=== PATIENT | male | born 1990 | race Caucasian/White ===

== ENCOUNTER 2018-04-12 07:30 | Inpatient (IN) | payer OTHER ==
[~2018-04-12] VITALS: Ht 175.3 cm; Wt 63.0 kg
[2018-04-18] MEDS ORDERED: BENADRYL25 M3 PO (13:17)
[2018-04-18] MEDS ORDERED: TYLENOL EXTRA500 MG ORAL (13:17)
[2018-04-19] VITALS (13 sets, daily range): BP systolic 115–131; BP diastolic 51–87
[2018-04-19] MEDS ORDERED: Vancomycin 1gm/D5W 275ml IVPB ONE ×2 (06:00)
[2018-04-19] MEDS ORDERED: Pantoprazole Inj IVP SCH (06:00)
[2018-04-19] MEDS ORDERED: Sterile Water Irrig 1000ml IRRIG ONE (07:00)
[2018-04-19] MEDS ORDERED: NS Irrig 1000ml ONE (07:00)
[2018-04-19] MEDS ORDERED: LR 1000ml ONE (07:00)
[2018-04-19] MEDS ORDERED: Neostigmine 1mg/ml 10ml Inj ONE (07:00)
[2018-04-19] MEDS ORDERED: Propofol 1,000mg/ 100ml btl IV ONE (07:00)
[2018-04-19] MEDS ORDERED: Bacitracin Oint 15gm Tube TOPIC ONE (07:07)
[2018-04-19] MEDS ORDERED: EPINEPHrine 1mg/1ml Amp ONE (07:07)
[2018-04-19] MEDS ORDERED: Thrombin 5000 units spray kit TOPIC ONE ×2 (07:08→14:41)
[2018-04-19] MEDS ORDERED: Heparin 1000 units/ml 1ml Vial ONE (07:08)
[2018-04-19] MEDS ORDERED: Gelfoam Size TOPIC ONE ×2 (07:09→14:42)
[2018-04-19] MEDS ORDERED: Gelfoam Absorbable 1gm powder pkt TOPIC ONE ×2 (07:09→14:42)
[2018-04-19] MEDS ORDERED: fentaNYL 100 mcg/2 mL IV ONE ×2 (07:09→08:21)
[2018-04-19] MEDS ORDERED: Midazolam 2mg/2ml Inj ONE ×2 (07:09→11:32)
[2018-04-19] MEDS ORDERED: Thrombin 5000 units TOPIC ONE ×2 (07:09→14:42)
[2018-04-19] MEDS ORDERED: Bupivacaine 0.5% Inj 30 ml vial INJ ONE (07:09)
[2018-04-19] MEDS ORDERED: Bacitracin 50000 Units Vial ONE (07:10)
[2018-04-19] MEDS ORDERED: Zemuron 50mg/5ml Inj IV ONE ×2 (07:16→11:06)
[2018-04-19] MEDS ORDERED: Succinylcholine 20mg/ml 10ml vial ONE (07:16)
[2018-04-19] MEDS ORDERED: Vancomycin 1gm inj IVPB ONE (07:34)
[2018-04-19] MEDS ORDERED: Pantoprazole Inj ONE (07:34)
--- NOTE | 2018-04-19 07:52 | Pre-Procedure Note/Attestation ---
Pre-Procedure Note/Attestation Complete Prior to Procedure Planned Procedure: bilateral Procedure Narrative: Multi-stage cervical decompressiona nd fusion 1. Posterior cervical fecetectomies C4-5 lateral mass screws C3 to C5 2.Anterior cervical fusion and fixation at C4-5 with plate arthrodesis 3. Posterior C3 to C5 posterolateral arthrodesis and fixation C3 to C5 Attestation I attest that I discussed the nature of the procedure; its benefits; risks and complications; and alternatives (and the risks and benefits of such alternatives ), prior to the procedure, with the patient (or the patient's legal employer relations representative). I attest that, if there was a reasonable possibility of needing a blood transfusion, the patient (or the patient's legal employer relations representative) was given the [place] [employer] standardized written summary, pursuant to the [place] Blood Safety Act ([place] Health and Safety Code # 1645, as amended). I attest that I re-evaluated the patient just prior to the surgery and that there has been no change in the patient's H&P, except as documented below: Chikis Potter MD Apr 19, 2018 07:52
[2018-04-19] MEDS ORDERED: Dexamethasone 4mg/ml vial ONE (08:44)
[2018-04-19] MEDS ORDERED: Morphine Sulfate 10mg/ml Inj ONE (09:20)
--- NOTE | 2018-04-19 09:34 | Anethesia Preoperative Eval ---
Anesthesia Pre-op PMH/ROS General Date of Evaluation: Apr 19, 2018 Time of Evaluation: 07:16 Anesthesiologist: Elsa ASA Score: ASA 2 Mallampati Score Class I : Soft palate, uvula, fauces, pillars visible Class II: Soft palate, uvula, fauces visible Class III: Soft palate, base of uvula visible Class IV: Only hard plate visible Mallampati Classification: Class II Surgeon: Abbey Diagnosis: Cervical myelopathy Surgical Procedure: C3-C5 posterior decompression, anterior discectomy fusion Anesthesia History: none Social History: current smoker, alcohol use - social Family History: no anesthesia problems Allergies: Coded Allergies: No Known Allergies (Unverified , 04/15/18) Medications: see eMAR Past Medical History Cardiovascular: Denies: HTN, CAD, GA, valve dz, arrhythmia, other Pulmonary: Denies: asthma, COPD, CHIDI, other Gastrointestinal/Genitourinary: Reports: GERD - mild; Denies: CRI, ESRD, other Neurologic/Psychiatric: Reports: other - chronic pain; Denies: dementia, CVA, depression/anxiety, TIA Endocrine: Denies: DM, hypothyroidism, steroids, other HEENT: Denies: cataract (L), cataract (R), glaucoma, [place] (L), [place] (R), other Hematology/Immune: Denies: anemia, DVT, bleeding disorder, other Musculoskeletal/Integumentary: Denies: OA, RA, DJD, DDD, edema, other PMH Narrative: as above PSxH Narrative: none Anesthesia Pre-op Phys. Exam Physician Exam Last Vital Signs Date Time Temp Pulse Resp B/P (MAP) Pulse Ox O2 Delivery O2 Flow Rate FiO2 04/19/18 06:41 Room Air 04/19/18 06:30 97.8 74 18 122/87 (99) 100 97.8 Constitutional: NAD Neurologic: CN 2-12 intact Cardiovascular: RRR, no M/R/G Respiratory: CTA Gastrointestinal: S/NT/ND Airway Exam Mallampati Score: Class II MO: full Neck: stiff ROM: limited Teeth: intact Dentures: no upper, no lower Anesthesia Pre-op A/P Labs see chart Studies Pre-op Studies: EKG - NSR, CXR - WNL Risk Assessment & Plan Assessment: ASA 2 Plan: GA with ETT prone and supine position neuromonitoring Status Change Before Surgery: No Pre-Antibiotics Drug: Vancomycin 1gr. Gentamicyn 80 mg. Given Within 1 Hr of Incision: Yes Time Given: 09:15 Isaias Hunter MD Apr 19, 2018 09:34
[2018-04-19] MEDS ORDERED: Sodium Chloride 10ml vial INJ ONE (09:35)
[2018-04-19] MEDS ORDERED: Glycopyrrolate 0.2mg/ml 1ml Vial ONE (09:35)
[2018-04-19] MEDS ORDERED: Propofol 200mg/20ml IV ONE ×5 (10:53→14:42)
[2018-04-19] MEDS ORDERED: LR 1000ml 1,000 ML IVLG SCH (15:01)
[2018-04-19] MEDS ORDERED: Ketorolac 30mg Inj ONE (15:04)
[2018-04-19] MEDS ORDERED: Metoclopramide 10mg/2ml Inj IVP PRN (15:15)
[2018-04-19] MEDS ORDERED: fentaNYL 100 mcg/2 mL IV PRN (15:15)
[2018-04-19] MEDS ORDERED: Ketorolac 30mg Inj IV PRN (15:15)
[2018-04-19] MEDS ORDERED: DiphenhydrAMINE 50mg/ml Inj IVP PRN (15:15)
[2018-04-19] MEDS ORDERED: Acetaminophen (Non formulary) 100 ML IV ONE ×2 (15:15→16:30)
[2018-04-19] MEDS ORDERED: Meperidine 50mg/ml Inj(FOR RIGORS ONLY) IV PRN (15:15)
--- NOTE | 2018-04-19 16:20 | Diagnostic Imaging Report ---
Indication: Pain, intraoperative Technique: Intraoperative images Comparison: none Findings: From intraoperative images document anterior fusion and placement of a disc prosthesis bridging C4 and C5 the posterior fusion hardware bridging C3, C4, C5. Impression: Intraoperative imaging, as described
[2018-04-19] MEDS ORDERED: Cyclobenzaprine 10mg Tab ORAL PRN (16:30)
[2018-04-19] MEDS ORDERED: HYDROcodone/Acetamin 7.5/325 tab ORAL PRN ×2 (16:30→18:15)
[2018-04-19] MEDS ORDERED: traMADol 50mg tab ORAL PRN (16:30)
--- NOTE | 2018-04-19 16:35 | Immediate Post-Op Evaluation ---
Immediate Post-Op Evalulation Immediate Post-Op Evalulation Procedure: C3-C5 posterior laminotomy with interbody fusion ACDF C4-C5 Date of Evaluation: Apr 19, 2018 Time of Evaluation: 16:33 IV Fluids: 2000 Blood Products: none Estimated Blood Loss: 100 Urinary Output: 900 Blood Pressure Systolic: 127 Blood Pressure Diastolic: 68 Pulse Rate: 102 Respiratory Rate: 22 O2 Sat by Pulse Oximetry: 99 Temperature (Fahrenheit): 37.3 Pain Score (1-10): 1 Nausea: No Vomiting: No Complications none Patient Status: awake, patent, none Hydration Status: adequate Isaias Hunter MD Apr 19, 2018 16:35
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
--- NOTE | 2018-04-19 17:02 | General Progress Note ---
Progress Note Progress Note Neurosugery Post-op check S/ Comfortable O/ Vs: Last 24 Hour Vital Signs Date Time Temp Pulse Resp B/P (MAP) Pulse Ox O2 Delivery O2 Flow Rate FiO2 04/19/18 06:41 Room Air 04/19/18 06:30 97.8 74 18 122/87 (99) 100 97.8 Alert and oriented x 4 Moves all extremities well Normal sensation doing well admit to floor cervical collar in place. Chikis Potter MD Apr 19, 2018 17:02
--- NOTE | 2018-04-19 17:43 | General Progress Note ---
Assessment/Plan Status Narrative s/p comopoex spine surgery doign well Assessment/Plan pwerioperative antibiotitic prophyalxis paincontrol pt ot dvt rpophyalxis Subjective Date patient seen: Apr 19, 2018 Time patient seen: 17:42 Constitutional: Reports: no symptoms HEENT: Reports: no symptoms Allergies: Coded Allergies: No Known Allergies (Unverified , 04/15/18) Subjective s/p complex spin efusion no fevenr nochills Objective Last 24 Hour Vital Signs Date Time Temp Pulse Resp B/P (MAP) Pulse Ox O2 Delivery O2 Flow Rate FiO2 04/19/18 17:35 98.6 84 19 124/66 99 Nasal Cannula 3 98.6 04/19/18 17:25 89 20 121/70 99 Nasal Cannula 3 04/19/18 17:10 97 21 123/67 99 Nasal Cannula 3 04/19/18 17:00 96 19 119/51 100 Nasal Cannula 3 04/19/18 16:50 91 17 131/51 100 Simple Mask 6 04/19/18 16:40 98 19 117/56 100 Simple Mask 6 04/19/18 16:35 99.1 102 22 99 04/19/18 16:30 101 16 127/58 100 Simple Mask 6 04/19/18 16:25 107 18 124/63 100 Simple Mask 6 04/19/18 16:21 100.2 104 22 125/53 99 Simple Mask 6 100.2 04/19/18 06:41 Room Air 04/19/18 06:30 97.8 74 18 122/87 (99) 100 97.8 Intake and Output 04/18/18 04/19/18 19:00 07:00 # Voids 1 Height (Feet): 5 Height (Inches): 9.00 Weight (Pounds): 139 Neck: other - wound is coverd adn dry dressing Cardiovascular: normal rate, regular rhythm Respiratory/Chest: lungs clear Abdomen: soft Terry Coornel MD Apr 19, 2018 17:43
[2018-04-19] MEDS: Docusate 100mg cap ORAL SCH (18:00)
[2018-04-19] MEDS: Docusate Sod/Senna tab ORAL SCH (18:00)
[2018-04-19] MEDS: HYDROcodone/Acetamin 7.5/325 tab ORAL PRN (18:48)
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
[2018-04-19] MEDS: NS w/KCl 20mEq 1,000 ML IV SCH (20:46)
[2018-04-19] MEDS: HYDROmorphone 1mg/ml Carpuject IVP PRN (20:47)
[2018-04-19] MEDS: Vancomycin 1 GM in D5W 275 ML IVPB SCH (21:05)
[2018-04-20] VITALS: BP 125/72
[2018-04-20 04:00] VITALS: BP 107/62
[2018-04-20] MEDS: NS w/KCl 20mEq 1,000 ML IV SCH (05:02)
[2018-04-20 06:35] LABS: BASOPHILS % (AUTO) 0.2 % (0.0-2.0); EOSINOPHILS % (AUTO) 0.1 % (0.0-3.0); HEMATOCRIT 37.7 % (42.0-52.0); HEMOGLOBIN 13.9 G/DL (14.2-18.0); LYMPHOCYTES % (AUTO) 13.3 % (20.0-45.0); MEAN CORPUSCULAR VOLUME 91 FL (80-99); MONOCYTES % (AUTO) 9.7 % (1.0-10.0); NEUTROPHILS % (AUTO) 76.8 % (45.0-75.0); PLATELET COUNT 140 K/UL (150-450); RED BLOOD COUNT 4.13 M/UL (4.70-6.10); RED CELL DISTRIBUTION WIDTH 10.8 % (11.6-14.8); WHITE BLOOD COUNT 12.2 K/UL (4.8-10.8)
[2018-04-20 06:52] LABS: ANION GAP 5 mmol/L (5-15); BLOOD UREA NITROGEN 11 mg/dL (7-18); CALCIUM 8.2 MG/DL (8.5-10.1); CARBON DIOXIDE 30 MMOL/L (21-32); CHLORIDE 107 MMOL/L (98-107); POTASSIUM 4.2 MMOL/L (3.5-5.1); SODIUM 142 MMOL/L (136-145)
[2018-04-20 08:00] VITALS: BP_DIAS 105
[2018-04-20] MEDS: Docusate Sod/Senna tab ORAL SCH ×2 (08:42→18:16)
[2018-04-20] MEDS: Docusate 100mg cap ORAL SCH ×2 (08:42→18:17)
[2018-04-20] MEDS: Vancomycin 1 GM in D5W 275 ML IVPB SCH (08:43)
[2018-04-20] MEDS: HYDROcodone/Acetamin 7.5/325 tab ORAL PRN ×2 (10:13→16:36)
--- NOTE | 2018-04-20 10:28 | 48 Hour Post Anesthesia Eval ---
Post Anesthesia Evaluation Procedure: C3-C5 posterior laminotomy with interbody fusion ACDF C4-C5 Date of Evaluation: Apr 20, 2018 Time of Evaluation: 10:24 Blood Pressure Systolic: 107 0: 56 Pulse Rate: 72 Respiratory Rate: 20 Temperature (Fahrenheit): 97.8 O2 Sat by Pulse Oximetry: 98 Airway: patent Nausea: No Vomiting: No Pain Intensity: 2 Hydration Status: adequate Cardiopulmonary Status: stable Mental Status/LOC: patient returned to baseline Follow-up Care/Observations: Pain at surgical incisions sites well controlled, patient complains on burning pain around R elbow and R biceps area, on exam R UE appears to be weaker than L , no sensory deficits. Post-Anesthesia Complications: none Follow-up care needed: N/A Isaias Hunter MD Apr 20, 2018 10:28
[2018-04-20] MEDS: HYDROmorphone 1mg/ml Carpuject IVP PRN ×4 (11:21→23:33)
[2018-04-20 12:00] VITALS: BP 121/77
[2018-04-20 16:00] VITALS: BP 124/80
--- NOTE | 2018-04-20 18:28 | General Progress Note ---
Progress Note Progress Note Neurosurgey POD #2 S/Ambulated, Tolearting pos. Gant removed. Sore throat. Mild right upper extremity numbness. O/ Vs: Last 24 Hour Vital Signs Date Time Temp Pulse Resp B/P (MAP) Pulse Ox O2 Delivery O2 Flow Rate FiO2 04/20/18 16:00 97.0 68 20 124/80 (95) 97 97.0 04/20/18 12:00 97.0 59 20 121/77 (92) 98 97.0 04/20/18 11:51 97.0 04/20/18 11:21 97.8 04/20/18 11:12 97.8 04/20/18 10:28 208.0 72 20 98 04/20/18 10:13 98.0 04/20/18 09:00 Room Air 04/20/18 08:00 98.0 76 20 /105 98 98.0 04/20/18 04:00 97.2 63 18 107/62 (77) 98 97.2 04/20/18 00:00 98.0 70 19 125/72 (89) 98 98.0 04/19/18 21:00 Room Air 04/19/18 20:00 98.2 62 17 123/80 (94) 98 98.2 04/19/18 18:48 97.6 04/19/18 18:38 97.6 73 18 115/73 (87) 97 97.6 HV 60 cc Alert and orinetd x 4 Moves al extremities well. Mild numbness in the right upper arm C5 distribution Deltoid strong bilaterally Posterior HV drain removed without complication. New dressing s applied to fron and back of the neck incisons. All incisions are C/D/I Labs: Laboratory Tests Test 04/20/18 05:50 White Blood Count 12.2 K/UL (4.8-10.8) H Red Blood Count 4.13 M/UL (4.70-6.10) L Hemoglobin 13.9 G/DL (14.2-18.0) L Hematocrit 37.7 % (42.0-52.0) L Mean Corpuscular Volume 91 FL (80-99) Mean Corpuscular Hemoglobin 33.8 PG (27.0-31.0) H Mean Corpuscular Hemoglobin Concent 36.9 G/DL (32.0-36.0) H Red Cell Distribution Width 10.8 % (11.6-14.8) L Platelet Count 140 K/UL (150-450) L Mean Platelet Volume 8.2 FL (6.5-10.1) Neutrophils (%) (Auto) 76.8 % (45.0-75.0) H Lymphocytes (%) (Auto) 13.3 % (20.0-45.0) L Monocytes (%) (Auto) 9.7 % (1.0-10.0) Eosinophils (%) (Auto) 0.1 % (0.0-3.0) Basophils (%) (Auto) 0.2 % (0.0-2.0) Sodium Level 142 MMOL/L (136-145) Potassium Level 4.2 MMOL/L (3.5-5.1) Chloride Level 107 MMOL/L (98-107) Carbon Dioxide Level 30 MMOL/L (21-32) Anion Gap 5 mmol/L (5-15) Blood Urea Nitrogen 11 mg/dL (7-18) Creatinine 1.0 MG/DL (0.55-1.30) Estimat Glomerular Filtration Rate > 60 mL/min (>60) Glucose Level 110 MG/DL (74-106) H Calcium Level 8.2 MG/DL (8.5-10.1) L Magnesium Level 2.1 MG/DL (1.8-2.4) doing well discharge panning pain control ambulate with PT. Chikis Potter MD Apr 20, 2018 18:28
[2018-04-20 20:00] VITALS: BP 124/75
[2018-04-21] VITALS: BP 134/94
[2018-04-21 05:59] VITALS: BP 122/79
[2018-04-21] MEDS: HYDROmorphone 1mg/ml Carpuject IVP PRN ×4 (06:20→19:42)
[2018-04-21 08:00] VITALS: BP 122/85
[2018-04-21] MEDS: Docusate Sod/Senna tab ORAL SCH ×2 (08:49→17:35)
[2018-04-21] MEDS: Docusate 100mg cap ORAL SCH ×2 (08:49→17:35)
[2018-04-21] MEDS: HYDROcodone/Acetamin 7.5/325 tab ORAL PRN (10:14)
--- NOTE | 2018-04-21 11:29 | General Progress Note ---
Progress Note Progress Note Neurosurgery POD #3 S/ Incisional pain controlled with IV meds. Right arm numbness improved O/ Vs Last 24 Hour Vital Signs Date Time Temp Pulse Resp B/P (MAP) Pulse Ox O2 Delivery O2 Flow Rate FiO2 04/21/18 09:00 Room Air 04/21/18 08:00 99.2 97 20 122/85 (97) 98 99.2 04/21/18 05:59 98.2 75 18 122/79 (93) 96 98.2 04/21/18 00:00 98.5 61 17 134/94 (107) 94 98.5 04/20/18 21:00 Room Air 04/20/18 20:00 98.7 69 18 124/75 (91) 97 98.7 04/20/18 16:00 97.0 68 20 124/80 (95) 97 97.0 04/20/18 12:00 97.0 59 20 121/77 (92) 98 97.0 04/20/18 11:51 97.0 Alert and oriented x 4 Dressing dry and intact Upper extremity 5/5 except for right game protector 4/5 due to Biceps spasm. Normal sensation to light touch in the uppers Pain control switch to Oxycodone CR with [place] for moderate and Dilaudid for severe breakthrough pain. Bowel care ambulate discharge planning Chikis Potter MD Apr 21, 2018 11:29
[2018-04-21 12:00] VITALS: BP 119/72
--- NOTE | 2018-04-21 12:45 | Discharge Summary ---
DATE OF ADMISSION: 04/19/2018 DATE OF DISCHARGE: 04/22/2018. DISCHARGE DIAGNOSES: 1. Status post multi-stage anterior posterior cervical decompressive surgery, fusion, stabilization, and correction of kyphotic angulation. 2. C3 through C5 posterior lateral mass fixation. 3. C4-5 anterior cervical interbody graft and fixation. HISTORY OF PRESENT ILLNESS: Refer to the chart for History and Physical. HOSPITAL COURSE: The patient was admitted on 04/19/2018, underwent an uneventful multi-stage anterior posterior cervical decompressive surgery, correction of kyphotic angulation and fusion. He was cared for on the floor. His posterior cervical drain was removed postop day #1. He is ambulating. His pain is being controlled with medications. He is in cervical collar. He had detailed instructions regarding home activity level as well as diet. DISPOSITION: Home. DISCHARGE CONDITION: Stable. MEDICATIONS: Include oxycodone, Colace, and Flexeril. The patient is asked not to take the Flexeril medication at all together with oxycodone. He is also given prescription for hydrocodone for breakthrough pain. FOLLOWUP: Discharge followup with Dr. Potter in two weeks. COMPLICATIONS: None. CONSULTATIONS: Include Internal Medicine, Dr. Terry Coronel, and physical therapy. Chikis Potter M.D. DR: CARMELLA JOB#: [id number] CC:
[2018-04-21] MEDS: Milk of Magnesia 30ml Ud ORAL PRN ×2 (15:35→22:56)
[2018-04-21 16:00] VITALS: BP 132/84
[2018-04-21] MEDS ORDERED: HYDROcodone/Acetamin 7.5/325 tab ORAL PRN (16:00)
[2018-04-21 20:00] VITALS: BP 132/96
[2018-04-21] MEDS: oxyCONTIN 10mg tab ORAL SCH (21:06)
[2018-04-22] VITALS: BP 138/74
[2018-04-22] MEDS: HYDROmorphone 1mg/ml Carpuject IVP PRN ×2 (02:59→06:11)
[2018-04-22 08:00] VITALS: BP 114/68
[2018-04-22] MEDS: oxyCONTIN 10mg tab ORAL SCH (09:15)
[2018-04-22] MEDS: Milk of Magnesia 30ml Ud ORAL PRN (09:15)
[2018-04-22] MEDS: Docusate 100mg cap ORAL SCH (09:15)
[2018-04-22] MEDS: Docusate Sod/Senna tab ORAL SCH (09:15)
[2018-04-22 12:00] VITALS: BP 112/76
[2018-04-22] MEDS ORDERED: OXYCODONE HCL10 MG ORAL (12:45)
[2018-04-22] MEDS ORDERED: NORCO 10-325 T1 EACH ORAL (12:48)
[2018-04-22] MEDS ORDERED: COLACE100 MG ORAL (12:49)
[2018-04-22] MEDS ORDERED: CYCLOBENZAPRINE10 MG ORAL (12:54)
== END 2018-04-22 14:45 | disposition home health service (06) | DRG 454 ==
LOC: SDSOVERFLO 04-19 05:48 → 3E 04-19 17:45
PROC: 0RT30ZZ Resection of Cervical Vertebral Disc, Open Approach (ICD-10-PCS; principal; 2018-04-19 07:30)
PROC: 07DR3ZZ Extraction of Iliac Bone Marrow, Percutaneous Approach (ICD-10-PCS; principal; 2018-04-19 07:30)
PROC: 0RG10A0 Fusion of Cervical Vertebral Joint with Interbody Fusion Device, Anterior Approach, Anterior Column, Open Approach (ICD-10-PCS; principal; 2018-04-19 07:30)
PROC: 0RG2071 Fusion of 2 or more Cervical Vertebral Joints with Autologous Tissue Substitute, Posterior Approach, Posterior Column, Open Approach (ICD-10-PCS; principal; 2018-04-19 07:30)
DX: M50.121 Cervical disc disorder at C4-C5 level with radiculopathy (principal); M50.021 Cervical disc disorder at C4-C5 level with myelopathy; M40.292 Other kyphosis, cervical region; V89.2XXS Person injured in unspecified motor-vehicle accident, traffic, sequela; K21.9 Gastro-esophageal reflux disease without esophagitis
CPT/HCPCS: 36415; 72040; 76001; 80048; 83735; 85025; 86850; 86900; 86901; 87081; 93970; 94003; 94150; C9399; J1580; J2250; J2405; J2710